=== PATIENT | female | born 1975 | race Caucasian/White ===

== ENCOUNTER 2023-08-03 07:37 | Outpatient (OUT) | payer OTHER, SELFPAY ==
--- NOTE | 2023-08-03 07:56 | MM_ITS ---
Patient Name: MIRNA MORATAYA MR#: [id number] : 1975 Exam Date: 08/03/2023 Ordering Doctor: DR Maite Vaca M.D. RADIOLOGY REPORT PROCEDURE: MM TOMOSYNTHESIS SCREENING BI COMPARISON: None. INDICATIONS: Screening Calculator Name NCI Breast Cancer Risk Assessment Tool 5 Year Breast Cancer Risk 1.00% Lifetime Breast Cancer Risk 10.30% Personal Breast Cancer No Personal Ovarian Cancer No Treatments None Family Cancers Father with stomach cancer at age 32; Grandfather-paternal with colon cancer at age 60. LOCATION: [facility] BREAST COMPOSITION: Heterogeneously dense,which may obscure small masses. FINDINGS: DIAGNOSTIC CATEGORY 0--INCOMPLETE: NEED ADDITIONAL IMAGING EVALUATION. Scattered benign-appearing nodules are present. Scattered benign-appearing calcifications are present. Scattered benign-appearing lymph nodes are present. RIGHT BREAST: Vague cluster microcalcifications upper outer quadrant, mid breast. Spot magnification is recommended. LEFT BREAST: No significant suspicious finding. RECOMMENDATIONS: ULTRASOUND: RIGHT BREAST ADDITIONAL MAMMOGRAPHIC VIEWS REQUIRED: RIGHT BREAST - spot magnification PLEASE NOTE: A NORMAL MAMMOGRAM DOES NOT EXCLUDE THE POSSIBILITY OF BREAST CANCER. A CLINICALLY SUSPICIOUS PALPABLE LUMP SHOULD BE BIOPSIED. Dictated by: Samuel Sesay MD on 08/03/2023 at 10:05 Approved by: Samuel Sesay MD on 08/03/2023 at 10:09
[2023-08-03 08:03] LABS: Basophils Percent Auto 0.6 % (0.2-2.0); Eosinophils Absolute Auto 0.1 10^3/uL (0.0-0.7); Eosinophils Percent Auto 1.3 % (0.9-7.0); Hematocrit 33.9 % (36.0-48.0); Hemoglobin 9.5 g/dL (12.0-16.0); Immature Granulocytes Abs Auto 0.01 10^3/uL (0.00-0.03); Immature Granulocytes Pct Auto 0.1 % (0.0-0.5); Lymphocytes Absolute Auto 2.2 10^3/uL (1.2-3.8); Mean Corpuscular Hemoglobin 19.9 pg (26.7-34.0); Mean Corpuscular Volume 71.1 fL (81.0-99.0); Monocytes Absolute Auto 0.3 10^3/uL (0.3-0.8); Monocytes Percent Auto 4.5 % (1.7-12.0); Neutrophils Absolute Auto 4.1 10^3/uL (1.4-6.5); Neutrophils Percent Auto 60.5 % (43.0-75.0); Platelet Count 364 10^3/uL (150-450); Red Blood Count 4.77 10^6/uL (4.20-5.40); Red Cell Distribution Width 18.7 % (11.0-15.0); White Blood Count 6.7 10^3/uL (4.0-11.0)
[2023-08-03 08:24] LABS: Alanine Aminotransferase 28 U/L (14-59); Albumin Globulin Ratio 0.9; Albumin Level 3.7 g/dL (3.4-5.0); Alkaline Phosphatase 59 U/L (46-116); Anion Gap 11.4; Aspartate Amino Transferase 20 U/L (15-37); BUN Creatinine Ratio 11.1; Bilirubin Total 0.5 mg/dL (0.2-1.0); Carbon Dioxide 28.5 mmol/L (21.0-32.0); Chloride 104 mmol/L (98-107); Chol HDL Ratio 3.9; Cholesterol 168 mg/dL (<=200); Estimated GFR (African America >60 (>=60); Estimated GFR (Non-African Ame >60 (>=60); Globulin 4.2 g/dL; Glucose 105 mg/dL (74-106); HDL Cholesterol 43 mg/dL (40-60); Potassium 3.9 mmol/L (3.5-5.1); Sodium 140 mmol/L (136-145); Total Protein 7.9 g/dL (6.4-8.2); Triglycerides 105 mg/dL (<=150)
== END 2023-08-03 07:38 | disposition home or self-care (01) ==
PROVIDERS: PCP Family Medicine; Visit Provider Family Medicine
DX: Z00.00 Encounter for general adult medical examination without abnormal findings (principal); I10 Essential (primary) hypertension; Z12.31 Encounter for screening mammogram for malignant neoplasm of breast; Z80.0 Family history of malignant neoplasm of digestive organs; R92.0 Mammographic microcalcification found on diagnostic imaging of breast
CPT/HCPCS: 36415; 77063; 77067; 80053; 80061; 85025

== ENCOUNTER 2023-08-12 10:45 | Outpatient (OUT) | payer OTHER, SELFPAY ==
--- NOTE | 2023-08-12 10:49 | MM_ITS ---
Patient Name: MIRNA MORATAYA MR#: [id number] : 1975 Exam Date: 08/12/2023 Ordering Doctor: DR Maite Vaca M.D. RADIOLOGY REPORT PROCEDURE: MM DIAGNOSTIC MAMMO UNILAT RT, 08/12/2023, 10:51 US BREAST RT LIMITED, 08/12/2023, 11:13 COMPARISON: MM TOMOSYNTHESIS SCREENING BI, 08/03/2023. INDICATIONS: Abnormal Mammogram R92.8 Calculator Name NCI Breast Cancer Risk Assessment Tool 5 Year Breast Cancer Risk 1.00% Lifetime Breast Cancer Risk 10.30% Personal Breast Cancer No Personal Ovarian Cancer No Treatments None Family Cancers Father with stomach cancer at age 32; Grandfather-paternal with colon cancer at age 60. LOCATION: [facility] BREAST COMPOSITION: Heterogeneously dense,which may obscure small masses. FINDINGS: DIAGNOSTIC CATEGORY 4--SUSPICIOUS FOR MALIGNANCY. FINDING DOES NOT EXHIBIT CLASSIC FINDINGS OF BREAST CANCER: Spot compression demonstrates persistent density in the upper-outer quadrant with scattered pleomorphic calcifications. Ultrasound was performed demonstrating at the 10 o'clock position a focal 2.7 x 2.2 x 1.5 cm heterogeneous mass with calcifications. Identified at the 11 o'clock position is a complex solid and cystic mass measuring 1.3 x 1.0 x 0.7 cm Ultrasound-guided core biopsy of both right breast masses is recommended RECOMMENDATIONS: ULTRASOUND-GUIDED CORE BIOPSY: RIGHT BREAST 2 separate mass lesions PLEASE NOTE: A NORMAL MAMMOGRAM DOES NOT EXCLUDE THE POSSIBILITY OF BREAST CANCER. A CLINICALLY SUSPICIOUS PALPABLE LUMP SHOULD BE BIOPSIED. Dictated by: Samuel Sesay MD on 08/12/2023 at 11:32 Approved by: Samuel Sesay MD on 08/12/2023 at 11:36
--- OUTSIDE RECORDS SUMMARY | 2023-08-12 11:04 | XMS_ITS | CCD ---
Author Name Unknown Address [address] [place] [address] Organization [facility] Care Team Providers Care [facility] [employer] Name Role Phone DR MAITE VACA Attending Unavailable LIO, DR MAITE Crowe Consulting Unavailable DR MAITE VACA Primary Care Unavailable DR MAITE VACA Admitting Unavailable Maite Vaca Unavailable Tiffanie Ramachandran Unavailable Maite Vaca Primary Care Unavailable Tiffanie Ramachandran Attending Unavailable Tiffanie Ramachandran Admitting Unavailable Allergies Allergy Classification Reported Allergen(s) Allergy Type Date of Onset Reaction(s) Facility (1 source) patient allergy list reviewed by nurse or physicia Propensity to adverse reactions Comment:Done [facility] Other (1 source) Allergies Reconciled Propensity to adverse reactions Unknown [facility] Other Medications Current Medications Medication Drug Class(es) Dates Sig (Normalized) Sig (Original) acetaminophen 325 mg / HYDROcodone bitartrate 5 mg oral tablet (4 sources) Opioid Agonist Start: 07-28-2023 take 1 tablet by mouth every six hours HYDROcodone-Aceta minophen 5-325 MG 1 tablet as needed Orally every 6 hrs for 7 days Jul, Active atenolol 50 mg oral tablet (5 sources) beta-Adrenergic Veronique Start: 12-05-2021 take 1 tablet by mouth once daily Atenolol 50MG Atenolol 50MG, 1 (one) Tablet daily # 90, 12/05/2021, Ref. x3. Active Oral daily for 90 days *Pick strength-form from [employer] for eRX* Dec, Active Claritin-D 24 Hour 10-240MG (5 sources) Start: 10-31-2020 Claritin-D 24 Hour 10-240MG Claritin-D 24 Hour 10-240MG, 1 (one) Tablet daily # 30, 10/31/2020, Ref. x2. Active Oral daily for 30 *Pick strength-form from [employer] for eRX* Oct, Active Problems Active Problems Problem Classification Problem Date Documented Da te Episodic/Chronic Abdominal pain (5 sources) Abdominal pain; Translations: [Abdominal pain] Episodic Chronic obstructive pulmonary disease and bronchiectasis (1 source) Bronchitis; Translations: [Bronchitis, not specified as acute or chronic] Episodic Coagulation and hemorrhagic disorders (1 source) von Willebrand disorder; Translations: [von Willebrand's disease] Onset: 8 Chronic Esophageal disorders (5 sources) Gastroesophageal reflux disease; Translations: [GERD [Gastroesophageal reflux disease]] Chronic Essential hypertension (7 sources) Benign essential hypertension; Translations: [Essential hypertension, benign] Onset: 4 Chronic Fracture of upper limb (3 sources) Other fractures of lower end of right radius, initial encounter for closed fracture; Translations: [Nondisplaced fracture of right ulna styloid process, initial encounter for closed fracture] Episodic Gastrointestinal hemorrhage (5 sources) Hemorrhage of rectum and anus; Translations: [Rectal bleed] Episodic Headache; including migraine (1 source) Migraine without aura, not refractory ; Translations: [Migraine, unspecified, not intractable, without status migrainosus] Onset: 9 Chronic Nonspecific chest pain (9 sources) Other chest pain; Translations: [Chest pain] Onset: 2 Episodic Other female genital disorders (1 source) Premenstrual tension syndrome; Translations: [Premenstrual tension syndromes] Onset: 9 Chronic Other gastrointestinal disorders (5 sources) Diarrhea; Translations: [Diarrhea] Episodic Other gastrointestinal disorders (5 sources) Constipation; Translations: [Constipation] Episodic Other non-traumatic joint disorders (1 source) Pain in right elbow Episodic Other nutritional; endocrine; and metabolic disorders (1 source) Obese class II; Translations: [Body mass index 39.0-39.9, adult] Onset: 9 Chronic Other nutritional; endocrine; and metabolic disorders (1 source) Body mass index 40+ - severely obese; Translations: [Body mass index (BMI) 40.0-44.9, adult] Chronic Other screening for suspected conditions (not mental disorders or infectious disease) (4 sources) Encounter for screening mammogram for malignant neoplasm of breast; Translations: [Mammography abnormal] Episodic Other upper respiratory disease (1 source) Allergic rhinitis; Translations: [Allergic rhinitis, unspecified] Chronic Spondylosis; intervertebral disc disorders; other back problems (5 sources) Pain in thoracic spine; Translations: [Pain in thoracic spine] Episodic Superficial injury; contusion (1 source) Contusion of right elbow, initial encounter Episodic Unclassified (1 source) Pain in right elbow; Translations: [Pain in right elbow] Onset: Past or Other Problems Problem Classification Problem Date Documented Date Episodic/Chronic Acute bronchitis (1 source) Acute bronchitis; Translations: [Acute bronchitis, unspecified] Onset: 02-24-2014 Episodic Cancer of cervix (2 sources) Cervicovaginal cytology: High grade squamous intraepithelial lesion or carcinoma; Translations: [Papanicolaou smear of cervix with high grade squamous intraepithelial lesion (HGSIL)] Onset: 05-06-2008 Episodic Diseases of mouth; excluding dental (1 source) Acute sialoadenitis; Translations: [Acute sialoadenitis] Onset: 09-28-2018 Episodic Fluid and electrolyte disorders (1 source) Disorder of fluid AND/OR electrolyte; Translations: [Electrolyte and fluid disorders not elsewhere classified] Onset: 01-13-2014 Episodic Other female genital disorders (1 source) Dysplasia of cervix; Translations: [Dysplasia of cervix, unspecified] Onset: 05-06-2008 Episodic Other female genital disorders (1 source) Cervical intraepithelial neoplasia grade 1; Translations: [Mild dysplasia of cervix] Onset: 02-24-2008 Episodic Other upper respiratory infections (1 source) Acute maxillary sinusitis; Translations: [Acute recurrent maxillary sinusitis] Onset: 04-15-2016 Episodic Residual codes; unclassified (1 source) C/O - a back symptom; Translations: [Other symptoms referable to back] Onset: 11-28-2016 Episodic Sprains and strains (1 source) Sprain of costal cartilage; Translations: [Sprain and strain of ribs] Onset: 06-21-2014 Episodic Results Test Name Value Interpretation Reference Range Facil ity XR elbow RT 2Von 07-29-2023 XR elbow RT 2V [facility] Main [place] [id number] XRay Report Signed Patient: Mirna Morataya MR#: [id number] : 1975 Acct:[id number] Age/Sex: 48 / F ADM Date: 07/29/23 Loc: [facility] [place] Room: Type: [facility] Attending Dr: Tiffanie Ramachandran MD Copies to: Tiffanie Ramachandran MD Ordering Provider: Tiffanie Ramachandran MD Date of Service: 07/29/23 XR/XR elbow RT 2V: Right elbow pain XR elbow RT 2V 07/29/2023 9:12 AM SIGNS AND SYMPTOMS: Right elbow pain PROTOCOL: Frontal and lateral radiograph of the right elbow COMPARISON: None FINDINGS: There is preservation of the joint spaces. No fracture or dislocation. No soft tissue swelling or joint effusion. XR/XR elbow RT 2V IMPRESSION: No acute bony injury. Impression dictated by: Camilo Santiago M.D.07/29/2023 1:07 PM Dictation Location: [place] [address] Transcribed By: [facility] 07/29/23 1307 Dictated By: Camilo Santiago II, MD 07/29/23 1307 Signed By: 07/29/23 1307 [facility] Vital Signs Date Time Vital Sign Value Performing Clinician Facility 07-29-2023 09:00-0500 Body height 167.64 cm Tiffanie Ramachandran Other [facility] Other 07-29-2023 09:00-0500 Body mass index (BMI) [Ratio] 36.96 kg/m2 Tiffanie Ramachandran Other [facility] Other 07-29-2023 09:00-0500 Body weight 103.87 kg Tiffanie Ramachandran Other [facility] Other 07-28-2023 09:45-0500 Body height 167.64 cm Maite Vaca Other [facility] Other 07-28-2023 09:45-0500 Body mass index (BMI) [Ratio] 37.6 kg/m2 Maite Vaca Other [facility] Other 07-28-2023 09:45-0500 Body weight 105.69 kg Maite Vaca Other [facility] Other 07-28-2023 09:45-0500 Diastolic blood pressure 87 mm[Hg] Maite Vaca Other [facility] Other 07-28-2023 09:45-0500 Systolic blood pressure 140 mm[Hg] Maite Vaca Other [facility] Other 07-17-2023 08:30-0500 Body height 167.64 cm Maite Vaca Other [facility] Other 07-17-2023 08:30-0500 Body mass index (BMI) [Ratio] 37.7 kg/m2 Maite Vaca Other [facility] Other 07-17-2023 08:30-0500 Body weight 105.96 kg Maite Vaca Other [facility] Other 07-17-2023 08:30-0500 Diastolic blood pressure 80 mm[Hg] Maite Vaca Other [facility] Other 07-17-2023 08:30-0500 Systolic blood pressure 132 mm[Hg] Maite Vaca Other [facility] Other Encounters Encounter Date Encounter Type Care Provider Facility Start: 08-04-2023 End: 08-04-2023 ambulatory Maite Vaca Other [facility] Other Start: 08-04-2023 Telephone encounter Maite Vaca [facility] Start: 07-29-2023 [facility] visit new patient Tiffanie bustos [facility] Start: 07-29-2023 End: 07-29-2023 ambulatory Maite Vaca [facility] Other Start: 07-28-2023 End: 07-28-2023 ambulatory Maite Vaca Other [facility] Other Start: 07-28-2023 Office outpatient vi sit 15 minutes Maite Vaca [facility] Start: 07-17-2023 End: 07-17-2023 ambulatory Maite Vaca Other [facility] Other Start: 07-17-2023 Encounter for genera l adult medical examination without abnormal findings Maite Vaca [facility] Start: 07-17-2023 Office outpatient vi sit 15 minutes Maite Vaca [facility] Start: 12-25-2021 Gynecological examin ation normal Maite Vaca Other [facility] Other Start: 12-25-2021 End: 12-26-[address] MAITE VACA Facility:[facility]1 Procedures Date Procedure Procedure Detail Performing Clinician Start: 07-08-2018 Screening mammography M shakilarosenda Vaca Other Start: 10-31-2014 General examination of patient Maite Lio Other Immunizations Immunization Date Immunization Notes Care Provider Fa [facility] 06-18-2021 COVID-19 Vaccine Pfi zer - Documentation Purposes Only Maite Vaca Other [facility] Other 10-25-2020 COVID-19 Vaccine Pfi zer - Documentation Purposes Only Maite Vaca Other [facility] Other 10-03-2020 COVID-19 Vaccine Pfi zer - Documentation Purposes Only Maite Vaca Other [facility] Other Payers Date Payer Category Payer Self-pay 1975 Unknown [id number] 1958 Private Health Insurance [id number] Unknown [id number] Social History Date Type Detail Facility Unknown if ever smoked [facility] Other Sex Assigned At Sex Assigned At Bir th [facility] Other Evaluation note 08-04-2023 Note Date & Type Note Facility 08-04-2023 Evaluation note Encounter Date Diagnosis Assessment Notes Jul, Abnormal mammogram (ICD-10 - R92.8) [facility] Other Evaluation note 07-29-2023 Note Date & Type Note Facility 07-29-2023 Evaluation note Encounter Date Diagnosis Assessment Notes Jul, Contusion of right elbow, initial encounter (ICD-10 - S50.01XA) Patient instructed on daily ROM exercises. Avoid strenuous use and heavy lifting Jul, Other closed fracture of distal end of right radius, initial encounter (ICD-10 - S52.591A) The patient has suffered a minimally displaced radius fracture. This fracture is stable and we will treat this non-operative ly. We will treat this in a short arm fiberglass cast. The cast was applied without difficulty. The patient appears to be tolerating this well. We discussed that this injury can take at least six weeks to have early healing, will need gentle motion and strength exercise for months after healing. We discussed the need to limit any weight bearing to arm or strenuous activity such as lifting. Jul, Closed nondisplaced fracture of styloid process of right ulna, initial encounter (ICD-10 - S52.614A) Jul, Right elbow pain (ICD-10 - M25.521) [facility] Other Evaluation note 07-28-2023 Note Date & Type Note Facility 07-28-2023 Evaluation note Encounter Date Diagnosis Assessment Notes Jul, Closed fracture of right wrist, initial encounter (ICD-10 - S62.101A) Pt requests pain med to take at night. Left message at [facility] for [facility]. [facility] Other Evaluation note 07-17-2023 Note Date & Type Note Facility 07-17-2023 Evaluation note Encounter Date Diagnosis Assessment Notes Jul, Essential hypertension (ICD-10 - I10) Jul, Wellness examination (ICD-10 - Z00.00) Not a wellness exam, coded labs with this as well as I10 Jul, Screening mammogram, encounter for (ICD-10 - Z12.31) Jul, Other Pt declines cologuard or colonoscopy for screening [facility] Other Evaluation note Note Date & Type Note Facility Evaluation note No Information [facility] Other History general Narrative - Reported Note Date & Type Note Facility History general Narrative - Reported Type Medical History Problem Title : ches t wall assessment, physical exam, Problem Description : chest wall assessment, physical exam, Problem Comment : lateral chest wall pain with palpation , Problem Status : Active,, Medical History Problem Title : comp liance with medical treatment, Problem Description : compliance with medical treatment, Problem Comment : Done, Problem Status : Active,, Medical History Problem Title : Depr ession Screening, Problem Description : Depression Screening, Problem Comment : Negative, Problem Status : Active,, Medical History Problem Title : Esse ntial (primary) hypertension [], Problem Description : Essential (primary) hypertension [], Problem Comment : Essential (primary) hypertension, Problem Status : Active,, Medical History Problem Title : EXPO SURE TO NON-STD INFECTION: The patient has not been exposed to AIDS, HIV, hepatitis, TB, influenza, MMR, DPT, polio or tetanus. There have been no recent rashes or viral illnesses, Problem Status : Active,, Medical History Problem Title : MEDI SAM: Cervical dysplasia, Problem Status : Active,, Medical History Problem Title : MEDI SAM: Depression, Problem Status : Active,, Medical History Problem Title : MEDI SAM: Headaches, Problem Status : Active,, Medical History Problem Title : MEDI SAM: No history of significant medical diseases, Problem Status : Active,, Medical History Problem Title : no k nown problems, Problem Description : no known problems, Problem Comment : F, Problem Status : Active,, Medical History Problem Title : past medical history E&M, Problem Description : past medical history E&M, Problem Comment : HTN, Problem Status : Active,, Medical History Problem Title : past medical history reviewed, Problem Description : past medical history reviewed, Problem Comment : reviewed - no changes required, Problem Status : Active,, Medical History Problem Title : PHQ2 Questionairre Score, Problem Description : PHQ2 Questionairre Score, Problem Comment : 0, Problem Status : Active,, Medical History Problem Title : PHQ9 Question One score, Problem Description : PHQ9 Question One score, Problem Comment : 0, Problem Status : Active,, Medical History Problem Title : PHQ9 Question Two score, Problem Description : PHQ9 Question Two score, Problem Comment : 0, Problem Status : Active,, Medical History Problem Title : smok ing/tobacco cessation, patient education and counseling, Problem Description : smoking/tobacco cessation, patient education and counseling, Problem Comment : yes, Problem Status : Active,, Medical History Problem Title : URRUTIA SFUSION HISTORY: No history of receiving blood or blood product transfusion(s), Problem Status : Active,, Surgical History Problem Title : No p revious surgery, Problem Status : Active, Surgical History Problem Title : past surgical history reviewed, Problem Description : past surgical history reviewed, Problem Comment : reviewed - no changes required, Problem Status : Active, Surgical History Problem Title : surg ical procedures, hx of, Problem Description : surgical procedures, hx of, Problem Comment : Colposcopy 2009 EGD 2011 - Normal, Problem Status : Active, [facility] Other History general Narrative - Reported Note Date & Type Note Facility History general Narrative - Reported Type Medical History Essential hypertension Medical History Atypical chest pain Medical History Right-sided thoracic back pain Surgical History Colposcopy 2009 Surgical History EGD 2011 Hospitalization History SEE SURGICAL HX [facility] Other Summary Purpose Family History No Family History Records FoundNo Family History Records Found Advance Directives No Advanced Directives Records FoundNo Advanced Directives Records Found Reason for Referral Reason *Waiting for appt I called and left a message with my #, request appt today or tomorrow - R wrist fracture, [facility] Diagnosis 1 Closed fracture of r ight wrist, initial encounter (S62.101A) Referral Organization [facility] Referring Provider First Name Maite Referring Provider Last Name Lio Referring Provider Specialty Family [facility] Referred Organization [facility] Referred Provider Tiffanie Ramachandran Referred Address [address],[address] Referred Provider Specialty Orthopedic S urgery Referral Priority Routine General Notes Dorys Pavon 12:30:31 PM >received today, per DX this is an Urgent Appt Additional Source Comments INFORMATION SOURCE (unrecogn ized section and content) DATE CREATED AUTHOR 12/28/2021 [facility] DATE CREATED AUTHOR AUTHOR'S ORGANIZ ATION 08/05/2023 [facility] REASON FOR VISIT (unrecogniz ed section and content) Refill-Check UpRight Wrist I njurybroke right wrist -[facility] CON[facility] FOR RECORDS PERTAINING TO PATIENTS WHO ARE OR HAVE BEEN ENROLLED IN A CHEMICAL DEPENDENCY/SUBSTANCEABUSE PROGRAM, SOME INFORMATION MAY BE OMITTED. This clinical summary was aggregated from multiple sources. Caution should be exercised in using it in the provision of clinical care. This summary normalizes information from multiple sources, and as a consequence, information in this document may materially change the coding, format and clinical context of patient data. In addition, data may be omitted in some cases. CLINICAL DECISIONS SHOULD BE BASED ON THE PRIMARY CLINICAL RECORDS. [facility] [employer] provides no warranty or guarantee of the accuracy or completeness of information in this document.
== END 2023-08-12 10:46 | disposition home or self-care (01) ==
LOC: MAMMO 10:45
PROVIDERS: PCP Family Medicine; Visit Provider Family Medicine
DX: R92.8 Other abnormal and inconclusive findings on diagnostic imaging of breast (principal); Z80.0 Family history of malignant neoplasm of digestive organs; N63.10 Unspecified lump in the right breast, unspecified quadrant
CPT/HCPCS: 76642; 77065